=== PATIENT | male | born 1975 | race Caucasian/White ===

== ENCOUNTER 2022-10-03 19:23 | Emergency (ER) | payer OTHER, SELFPAY ==
[2022-10-03 19:33] VITALS: BP 120/86; PULSE 67; RESP 18; TEMP 36.6; O2SAT 99
--- NOTE | 2022-10-03 19:41 | ED.EAR ---
HPI - Ear Problem General Chief complaint: Skin/Abscess/Foreign Body Stated complaint: Right Ear Irritation Time Seen by Provider: 10/03/22 19:42 Source: patient, family, RN notes reviewed and old records reviewed Mode of arrival: ambulatory Limitations: no limitations History of Present Illness HPI Narrative: 47 year old male accompanied by presents to express care with complaints of redness, swelling, warmth, and some discomfort to his right outer ear along helix and antihelix area of right ear which began 3 days ago. Patient reports that he had a small pimple in his ear and he popped it, he then cleansed it with hydrogen peroxide and is ear has progressively became more tender and red with warmth. Patient reports that he has not had any fever, chills or sweats. Patient reports that he does have some pain radiating from his right ear to his jaw. MD Complaint: ear pain and other (swelling redness outer right ear ) Location: right ear Treatment prior to arrival: other (cleansing with hydrogen perxide) Related Data Allergies Allergy/AdvReac Type Severity Reaction Status Date / Time No Known Allergies Allergy Verified 10/03/22 19:43 Review of Systems Review of Systems: CONSTITUTIONAL: Denies malaise, chills, sweats, or fever. EYES: Denies visual changes, redness, or discharge. ENT: Reports no rhinorrhea, congestion, sinus pain, right otalgia no sore throat. CARDIOVASCULAR: Denies chest pain, palpitations, or edema. RESPIRATORY: Reports cough.? Denies dyspnea. GASTROINTESTINAL: Denies abdominal pain, nausea, vomiting, diarrhea SKIN: redness and scaliness of right external ear no drainage or itching. MUSCULOSKELETAL: Denies myalgia. NEUROLOGIC: Denies headache. All systems reviewed & are unremarkable except as noted in HPI and below PMFSH Social History Social History (Updated 10/03/22 @ 20:14 by Mira Cui NP) Gender identity (if verbalized by the patient): Male Comments At time of signature, agree with nursing past medical, surgical, social and family history. There is no relevant family history pertinent to the presenting complaint Exam Narrative: GENERAL: Well-appearing, well-nourished, and in no acute distress. HEAD: Normocephalic EYES: PERRLA, conjunctivae clear ENT: Nares clear, turbinates edematous and erythematous, clear discharge. Mucous membranes moist. TM pearly alvarez with dull light reflex bilaterally; no tragal tenderness.Right external ear helix and antihelix red with warmth and some scaliness of tissue some discomfort. Oropharynx erythematous without lesions. Tonsils not enlarged and without exudate, no drooling, no hoarseness, no trismus, uvula midline. NECK: Supple. No lymphadenopathy CHEST: Clear to auscultation, breath sounds equal. No wheezing, rhonchi, rales, or stridor. No respiratory distress, speaks in full sentences. [id number] on room air HEART: Regular rate and rhythm. No murmur heard. SKIN: Warm, dry, no rash. NEURO: Alert and oriented x3. PSYCH: Normal mood and affect Course Course Emergency Course: Patient is aware of diagnosis, understands and agrees to treatment plan.? Anticipatory guidance given.? Patient agrees to follow-up as directed and is aware of reasons to seek care at the emergency department. Portions of this record may have been created with voice recognition software Level of Care: Express Care Visit Vital Signs Vital signs: Vital Signs Temperature 36.6 C 10/03/22 19:33 Pulse Rate 67 10/03/22 19:33 Respiratory Rate 18 10/03/22 19:33 Blood Pressure 120/86 10/03/22 19:33 Pulse Oximetry 99 10/03/22 19:33 Oxygen Delivery Room Air 10/03/22 19:33 Temperature 36.6 C 10/03/22 19:33 Pulse Rate 67 10/03/22 19:33 Respiratory Rate 18 10/03/22 19:33 Blood Pressure 120/86 10/03/22 19:33 Pulse Oximetry 99 10/03/22 19:33 Oxygen Delivery Room Air 10/03/22 19:33 Reviewed Medical Decision Making Diff
== END 2022-10-03 20:00 | disposition home or self-care (01) ==
PROVIDERS: Emergency Provider Registered Nurse; PCP Family Medicine
DX: H60.11 Cellulitis of right external ear (principal)
CPT/HCPCS: 99213; G0463